=== PATIENT | female | born 1955 | race Caucasian/White ===

== ENCOUNTER 2017-02-02 05:18 | Inpatient (IN) | payer OTHER ==
[~2017-02-02] VITALS: Ht 177.8 cm; Wt 106.5 kg
[~2017-02-02 05:18] MED LIST: ALEVE220 MG PO; ALKA-SELTZER P1 EA15 PO; AMOX TR-K CLV1 EAC4 PO; FEOSOL325 MG PO
[2017-02-02 06:04] VITALS: BP 151/79
[2017-02-02 11:51] VITALS: BP 140/73
[2017-02-02 12:05] VITALS: BP 140/73
[2017-02-02 16:00] VITALS: BP 139/68
[2017-02-02 20:03] VITALS: BP 136/80
[2017-02-02 23:51] VITALS: BP 120/60
[2017-02-03 04:14] VITALS: BP 149/69
[2017-02-03 05:58] LABS: ANION GAP 7 MEQ/L (2-14); CHLORIDE 105 MEQ/L (99-109); GFR ESTIMATE (CALCULATED) > 59 mL/min/; GLUCOSE 121 mg/dL (70-99); POTASSIUM 4.3 MEQ/L (3.7-5.4); SAMPLE HEMOLYSIS CHECK 0; SAMPLE ICTERIC CHECK 0; SAMPLE LIPEMIA CHECK 0; SODIUM 137 MEQ/L (136-147); UREA NITROGEN (BUN) 14 mg/dL (9-23)
[2017-02-03 08:37] LABS: HEMATOCRIT 35.1 % (36.0-46.0); MCV 87.8 FL (83-99)
[2017-02-03 10:37] VITALS: BP 164/71
[2017-02-03 12:00] VITALS: BP 148/64
[2017-02-03 16:46] VITALS: BP 148/68
[2017-02-03 23:51] VITALS: BP 120/64
[2017-02-04 08:29] VITALS: BP 146/66
[2017-02-04] MEDS ORDERED: BENADRYL25 MG PO (10:22)
[2017-02-04] MEDS ORDERED: BISAC-EVAC10 MG PR (10:24)
[2017-02-04] MEDS ORDERED: OXYCODONE HCL5 MG PO (10:24)
[2017-02-04] MEDS ORDERED: XARELTO10 MG PO (10:24)
[2017-02-04 10:58] LABS: HEMATOCRIT 30.9 % (36.0-46.0); MCV 88.8 FL (83-99)
== END 2017-02-04 15:19 | DRG 470 ==
LOC: 2SOUTH 05:18 → 3EAST 05:18 → 2SOUTH 10:13 → 3EAST 10:16 → 2SOUTH 12:17 → 3EAST 02-04 15:19
PROVIDERS: Orthopaedic Surgery; Physician Assistant
PROC: 0SRD0J9 Replacement of Left Knee Joint with Synthetic Substitute, Cemented, Open Approach (ICD-10-PCS; principal; 2017-02-02)
DX: M17.12 Unilateral primary osteoarthritis, left knee (principal); Z87.891 Personal history of nicotine dependence
CPT/HCPCS: 80048; 85014; 85018; C1713; J0131; J0690; J1885; J2250; J7050; J7120; L1820; S0020